=== PATIENT | male | born 2000 | race Two or more races ===

== ENCOUNTER 2024-11-29 12:16 | Emergency (ER) | payer OTHER ==
[~2024-11-29] VITALS: Ht 172.7 cm; Wt 70.8 kg
[2024-11-29] MEDS ORDERED: DEXAMETHASONE SODIUM PHOSPHATE 4 MG/ML VIAL IM ONE (14:00)
[2024-11-29] MEDS ORDERED: LIDOCAINE HCL 50 ML BOTT TOP ONE (14:00)
[2024-11-29] MEDS ORDERED: CEFTRIAXONE SODIUM 1,000 MG VIAL IM ONE (14:00)
[2024-11-29] MEDS ORDERED: KETOROLAC TROMETHAMINE 60 MG VIAL IM ONE ×2 (14:00→14:17)
[2024-11-29] MEDS ORDERED: IBUPROFEN600 MG PO (14:01)
[2024-11-29] MEDS ORDERED: AMOX-CLAV 875-1 EACH PO (14:01)
[2024-11-29] MEDS ORDERED: DEXAMETHASONE SODIUM PHOSPHATE 4 MG/ML VIAL ONE (14:17)
[2024-11-29] MEDS ORDERED: CEFTRIAXONE SODIUM 1,000 MG VIAL ONE (14:17)
== END 2024-11-29 14:33 | disposition home or self-care (01) ==
LOC: ER 12:16
DX: H60.92 Unspecified otitis externa, left ear (principal)
CPT/HCPCS: 96372; 99282; J0696; J1100; J1885